=== PATIENT | male | born 1970 | race Caucasian/White ===

== ENCOUNTER 2021-09-15 18:15 | Emergency (ER) | payer BC, OTHER ==
[2021-09-15 18:54] VITALS: BP 164/96; PULSE 126
[2021-09-15 19:20] LABS: CHLORIDE,CL 92 mmol/L (98-107); SODIUM,NA 130 mmol/L (136-145)
[2021-09-15 19:21] LABS: ANION GAP 17.5 mmol/L (5-15)
[2021-09-15 19:38] LABS: BARBITURATE SCREEN,URINE NEGATIVE (NEGATIVE); BENZODIAZEPINES SCREEN,URINE NEGATIVE (NEGATIVE); BUPRENORPHINE SCREEN,URINE NEGATIVE (NEGATIVE); METHAMPHETAMINE SCREEN, URINE NEGATIVE (NEGATIVE); THC SCREEN,URINE 50 NG/ML NEGATIVE (NEGATIVE)
[2021-09-15] MEDS ORDERED: Sodium Chloride 0.9% 10 ML Syringe FLUSH PRN (19:40)
[2021-09-15] MEDS ORDERED: Sodium Chloride 0.9% 1,000 ML IV ONE (19:40)
[2021-09-15] MEDS ORDERED: Glucagon,Human Recombinant 1 MG Vial IM PRN ×2 (19:42→19:46)
[2021-09-15] MEDS ORDERED: Insulin Lispro 100 Units/ML 3 ML Vial SUBCUT ONE ×2 (19:42→19:46)
[2021-09-15] MEDS ORDERED: 50% Dextrose in Water 50 ML Syringe IVPUSH PRN ×2 (19:42→19:46)
[2021-09-15] MEDS ORDERED: Insulin Glarg,Human.Rec.Analog 100 Unit/ML SUBCUT ONE (19:47)
--- NOTE | 2021-09-15 22:14 | EDM.PDOC ---
ED HPI GENERAL MEDICAL PROBLEM - General Chief Complaint: Diabetic Complaint Stated Complaint: ED Time Seen by Provider: 09/15/21 18:49 Source of Information: Reports: Patient History Limitations: Reports: No Limitations - History of Present Illness INITIAL COMMENTS - FREE TEXT/NARRATIVE: Pt. presents to ER with complaints of elevated blood sugar. Pt. states that he has not taken his novolog or levamir for approx 2 weeks because he has been out of the medication. He states that he recently lost his job and is unable to afford it. Pt. states that he has been staying at the [facility] here in [place] for approx. 4 days because he sold his vehicle and is unable to get back to his home in [place], [place]. He states that he likely was also kicked out of his house, but his brother later agreed to come to [place] to pick him up. Pt. states that he was also on duloxetine but stopped taking this as well. Pt. states that he feels weak and fatigued. Denies any chest pain or shortness of breath. No nausea, vomiting, or diarrhea. Denies any recent trauma. Denies any suicidal or homicidal ideation. Pt. complains of polyuria and polydipsia. He states that he has not been checking his blood sugar, but has the supplied to do so at his home. Onset: Today Onset Date: 09/15/21 Location: Reports: Generalized - Related Data Allergies Allergy/AdvReac Type Severity Reaction Status Date / Time No Known Allergies Allergy Verified 05/11/20 19:58 Home Meds: Home Meds DULoxetine HCl [Cymbalta] 1 cap PO DAILY 10/13/16 [History] Insulin Aspart [NovoLOG] 16 units SUBCUT TIDAC 10/13/16 [History] Insulin Detemir [Levemir] 60 unit SQ DAILY 10/13/16 [History] sitaGLIPtin Phos/Metformin HCl [Janumet Xr 100-1,000 mg Tablet] 1 tab PO DAILY 10/13/16 [History] atorvaSTATin Calcium [Atorvastatin Calcium] 1 tab PO BEDTIME 03/18/18 [History] metFORMIN HCl [Metformin HCl ER] 1 tab PO DAILY 03/18/18 [History] Ibuprofen [Advil] 600 mg PO Q6H PRN 05/11/20 [History] Polymyxin B/Trimethoprim [PolyTrim Ophth Soln] 2 drop EARBOTH QID #1 bottle 05/11/20 [Rx] bisacodyL [Bisacodyl] 5 mg PO DAILY PRN 05/11/20 [History] Past Medical History HEENT History: Reports: Allergic Rhinitis, Impaired Vision, Other (See Below) Other HEENT History: Patient wears glasses. No history of diabetic retinopathy. Cardiovascular History: Reports: High Cholesterol, Hypertension, Other (See Below) Other Cardiovascular History: Mild left atrial enlargement and mild left ventricular hypertrophy by echocardiogram. Gastrointestinal History: Reports: Chronic Constipation Genitourinary History: Reports: Chronic Renal Insuffiency, Diabetic Nephropathy, Other (See Below) Other Genitourinary History: History of proteinuria. Musculoskeletal History: Reports: Back Pain, Chronic, Fracture, Other (See Below) Other Musculoskeletal History: L2 vertebral body compression fracture on 06/22/2013. Left wrist fracture at age 8. Left compound tibial fibular midshaft fractures in 1998 requiring surgery as below. Right gastrocnemius muscle tear on 04/27/2018. Psychiatric History: Reports: Addiction, Anxiety, Bipolar, Depression, Other (See Below) Other Psychiatric History: History of alcohol abuse in his 20s with outpatient treatment in 1999. Additional previous history of marijuana use in his early 20s. Endocrine/Metabolic History: Reports: Diabetes, Type II, IDDM, Obesity/BMI 30+ - Past Surgical History Male Surgical History: Reports: Circumcision, Other (See Below) Other Male Surgeries/Procedures: Circumcision as an . Musculoskeletal Surgical History: Reports: ORIF, Other (See Below) Other Musculoskeletal Surgeries/Procedures:: ORIF/jose placement of tibial- fibular fracture in 1998. - Past Imaging History Past Imaging History: Reports: Cardiac Echo (12/21/2010 with findings as above and ejection fraction of 60%.), CAT Scan (CT of the lumbar spine on 06/20/2013.), MRI (Right lower leg on 04/27/2018.), Stress Testing (Negative Cardiolite stress test on 12/27/2010 with ejection fraction of 62%.), Ultrasound (Renal ultrasound on 05/10/2018. Testicular ultrasound on 02/13/2012 and 02/25/2008.) Social & Family History - Family History Oncologic: Reports: Lung, Metastatic, Other (See Below) Other Oncologic Family History: Maternal grandfather with fatal metastatic lung cancer at age 72 with history of previous tobacco use. - Tobacco Use Tobacco Use Status *Q: Never Tobacco User - Caffeine Use Caffeine Use: Reports: Coffee, Soda - Recreational Drug Use Recreational Drug Use: No - Living Situation & Occupation Living situation: Reports: , with Family Occupation: Employed ([employer]) ED ROS GENERAL - Review of Systems Review Of Systems: See Below Constitutional: Reports: Fatigue HEENT: Reports: No Symptoms Respiratory: Reports: No Symptoms Cardiovascular: Reports: No Symptoms Endocrine: Reports: High Glucose, Polydypsia, Polyuria GI/Abdominal: Reports: No Symptoms : Reports: No Symptoms Musculoskeletal: Reports: No Symptoms Skin: Reports: No Symptoms Neurological: Reports: No Symptoms Psychiatric: Reports: No Symptoms Hematologic/Lymphatic: Reports: No Symptoms Immunologic: Reports: No Symptoms ED EXAM GENERAL NO PERIP PULSE - Physical Exam Exam: See Below Exam Limited By: No Limitations General Appearance: Alert, WD/WN, No Apparent Distress Eye Exam: Bilateral Eye: EOMI Throat/Mouth: Normal Inspection, Normal Lips, Normal Teeth, Normal Gums, Normal Oropharynx, Normal Voice, No Airway Compromise Head: Atraumatic, Normocephalic Neck: Normal Inspection, Supple, Non-Tender, Full Range of Motion Respiratory/Chest: No Respiratory Distress, Lungs Clear, Normal Breath Sounds, No Accessory Muscle Use, Chest Non-Tender Cardiovascular: Normal Peripheral Pulses, Regular Rate, Rhythm, No Edema, No Gallop, No JVD, No Murmur GI/Abdominal: Soft, Non-Tender, No Distention, No Mass (Male) Exam: Deferred Rectal (Males) Exam: Deferred Extremities: Normal Inspection, Normal Range of Motion, Non-Tender, No Pedal Edema, Normal Capillary Refill Neurological: Alert, Oriented, CN II-XII Intact, Normal Cognition, Normal Gait, Normal Reflexes, No Motor/Sensory Deficits Psychiatric: Normal Affect, Normal Mood Skin Exam: Warm, Dry, Intact, Normal Color, No Rash Course - Vital Signs Last Recorded V/S: Last Vital Signs Temp 36.8 C 09/15/21 18:49 Pulse 126 H 09/15/21 18:49 Resp 18 09/15/21 18:49 BP 164/96 H 09/15/21 18:49 Pulse Ox 97 09/15/21 18:49 - Orders/Labs/Meds Orders: Active Orders 24 hr Category Date Time Status Peripheral IV Insertion Adult [OM.PC] Routine Oth 09/15/21 19:40 Ordered Labs: Laboratory Tests 09/15/21 09/15/21 09/15/21 Range/Units 18:52 18:52 19:20 WBC 8.4 (4.0-10.0) x10^3/uL RBC 5.41 (4.5-6.0) x10^6/uL Hgb 16.5 (14.0-18.0) g/dL Hct 46.1 (40.0-52.0) % MCV 85.2 (78.0-93.0) fL MCH 30.5 (26.0-32.0) pg MCHC 35.8 (32.0-36.0) g/dL RDW Coeff of Dusty 11.8 (10.0-15.0) % Plt Count 313 (130-400) x10^3/uL Immature Gran % (Auto) 0.10 (0.00-0.43) % Neut % (Auto) 81.2 H (50.0-80.0) % Lymph % (Auto) 11.3 L (25.0-50.0) % [place] % (Auto) 6.8 (2.0-11.0) % Eos % (Auto) 0.2 (0.0-4.0) % Baso % (Auto) 0.4 (0.2-1.2) % Neut # (Auto) 6.8 (1.8-7.7) x10^3/uL Lymph # (Auto) 1.0 (1.0-4.8) x10^3/uL [place] # (Auto) 0.6 (0.0-0.8) x10^3/uL Eos # (Auto) 0.0 (0.0-0.5) x10^3/uL Baso # (Auto) 0.0 (0.0-0.2) x10^3/uL Immature Gran # (Auto) 0.01 (0.00-0.07) x10^3/uL Sodium 130 L (136-145) mmol/L Potassium 4.5 (3.5-5.1) mmol/L Chloride 92 L (98-107) mmol/L Carbon Dioxide 25 (21-32) mmol/L Anion Gap 17.5 H (5-15) mmol/L BUN 15 (7-18) mg/dL Creatinine 1.3 (0.70-1.30) mg/dL Est Cr Clr Drug Dosing 67.98 mL/min Estimated GFR (MDRD) 58 Glucose 496 H* (70-99) mg/dL POC Glucose (70-99) mg/dL Calcium 9.1 (8.5-10.1) mg/dL Corrected Calcium 9.3 (8.5-10.1) mg/dL Phosphorus 3.5 (2.6-4.7) mg/dL Magnesium 2.1 (1.8-2.4) mg/dL Total Bilirubin 0.8 (0.2-1.0) mg/dL AST 27 (15-37) U/L ALT 35 (16-63) U/L Alkaline Phosphatase 139 H (46-116) U/L Total Protein 7.6 (6.4-8.2) g/dL Albumin 3.8 (3.4-5.0) g/dL Globulin 3.8 Albumin/Globulin Ratio 1.00 Urine Color Light yellow (YELLOW) Urine Appearance Clear (CLEAR) Urine pH 5.5 (5.0-8.0) Ur Specific [place] 1.015 Urine Protein Trace H (NEGATIVE) mg/dL Urine Glucose (UA) 500 H (NEGATIVE) mg/dL Urine Ketones 80 H (NEGATIVE) mg/dL Urine Occult Blood Negative (NEGATIVE) Urine Nitrite Negative (NEGATIVE) Urine Bilirubin Negative (NEGATIVE) Urine Urobilinogen 0.2 (0.2) EU/dL Ur Leukocyte Esterase Negative (NEGATIVE) Urine RBC Not seen (NOT SEEN) /HPF Urine WBC Not seen (NOT SEEN) /HPF Ur Squamous Epith Cells Rare (NOT SEEN) /HPF Urine Bacteria Not seen (NOT SEEN) /HPF Urine Mucus Not seen (NOT SEEN) /LPF Urine Opiates Screen (NEGATIVE) Ur Buprenorphine Scrn (NEGATIVE) Ur Oxycodone Screen (NEGATIVE) Urine Methadone Screen (NEGATIVE) Ur Barbiturates Screen (NEGATIVE) Ur Phencyclidine Scrn (NEGATIVE) Ur Amphetamine Screen (NEGATIVE) U Methamphetamines Scrn (NEGATIVE) Urine MDMA Screen (NEGATIVE) U Benzodiazepines Scrn (NEGATIVE) U Cocaine Metab Screen (NEGATIVE) U Marijuana (THC) Screen (NEGATIVE) Ethyl Alcohol < 3 (0-3) mg/dL 12/18/21 12/18/21 Range/Units 19:20 21:20 WBC (4.0-10.0) x10^3/uL RBC (4.5-6.0) x10^6/uL Hgb (14.0-18.0) g/dL Hct (40.0-52.0) % MCV (78.0-93.0) fL MCH (26.0-32.0) pg MCHC (32.0-36.0) g/dL RDW Coeff of Dusty (10.0-15.0) % Plt Count (130-400) x10^3/uL Immature Gran % (Auto) (0.00-0.43) % Neut % (Auto) (50.0-80.0) % Lymph % (Auto) (25.0-50.0) % [place] % (Auto) (2.0-11.0) % Eos % (Auto) (0.0-4.0) % Baso % (Auto) (0.2-1.2) % Neut # (Auto) (1.8-7.7) x10^3/uL Lymph # (Auto) (1.0-4.8) x10^3/uL [place] # (Auto) (0.0-0.8) x10^3/uL Eos # (Auto) (0.0-0.5) x10^3/uL Baso # (Auto) (0.0-0.2) x10^3/uL Immature Gran # (Auto) (0.00-0.07) x10^3/uL Sodium (136-145) mmol/L Potassium (3.5-5.1) mmol/L Chloride (98-107) mmol/L Carbon Dioxide (21-32) mmol/L Anion Gap (5-15) mmol/L BUN (7-18) mg/dL Creatinine (0.70-1.30) mg/dL Est Cr Clr Drug Dosing mL/min Estimated GFR (MDRD) Glucose (70-99) mg/dL POC Glucose 392 H (70-99) mg/dL Calcium (8.5-10.1) mg/dL Corrected Calcium (8.5-10.1) mg/dL Phosphorus (2.6-4.7) mg/dL Magnesium (1.8-2.4) mg/dL Total Bilirubin (0.2-1.0) mg/dL AST (15-37) U/L ALT (16-63) U/L Alkaline Phosphatase (46-116) U/L Total Protein (6.4-8.2) g/dL Albumin (3.4-5.0) g/dL Globulin Albumin/Globulin Ratio Urine Color (YELLOW) Urine Appearance (CLEAR) Urine pH (5.0-8.0) Ur Specific [place] Urine Protein (NEGATIVE) mg/dL Urine Glucose (UA) (NEGATIVE) mg/dL Urine Ketones (NEGATIVE) mg/dL Urine Occult Blood (NEGATIVE) Urine Nitrite (NEGATIVE) Urine Bilirubin (NEGATIVE) Urine Urobilinogen (0.2) EU/dL Ur Leukocyte Esterase (NEGATIVE) Urine RBC (NOT SEEN) /HPF Urine WBC (NOT SEEN) /HPF Ur Squamous Epith Cells (NOT SEEN) /HPF Urine Bacteria (NOT SEEN) /HPF Urine Mucus (NOT SEEN) /LPF Urine Opiates Screen Negative (NEGATIVE) Ur Buprenorphine Scrn Negative (NEGATIVE) Ur Oxycodone Screen Negative (NEGATIVE) Urine Methadone Screen Negative (NEGATIVE) Ur Barbiturates Screen Negative (NEGATIVE) Ur Phencyclidine Scrn Negative (NEGATIVE) Ur Amphetamine Screen Negative (NEGATIVE) U Methamphetamines Scrn Negative (NEGATIVE) Urine MDMA Screen Negative (NEGATIVE) U Benzodiazepines Scrn Negative (NEGATIVE) U Cocaine Metab Screen Negative (NEGATIVE) U Marijuana (THC) Screen Negative (NEGATIVE) Ethyl Alcohol (0-3) mg/dL Meds: Medications Discontinued Medications Generic Name Dose Route Start Last Admin Trade Name Freq PRN Reason Stop Dose Admin Dextrose/Water 50 ml 09/15/21 19:42 50% Dextrose In Water 50 Ml Syringe IVPUSH ASDIRECTED PRN Hypoglycemia Dextrose/Water 50 ml 09/15/21 19:46 50% Dextrose In Water 50 Ml Syringe IVPUSH ASDIRECTED PRN Hypoglycemia Glucagon 1 mg 09/15/21 19:42 Glucagon,Human Recombinant 1 Mg Vial IM ASDIRECTED PRN Hypoglycemia Glucagon 1 mg 09/15/21 19:46 Glucagon,Human Recombinant 1 Mg Vial IM ASDIRECTED PRN Hypoglycemia Sodium Chloride 1,000 mls @ 999 mls/hr 09/15/21 19:40 09/15/21 20:16 Normal Saline IV 09/15/21 20:40 999 mls/hr ONETIME ONE Administration Insulin Glargine 45 unit 09/15/21 19:47 09/15/21 20:30 Insulin Glarg,Human.Rec.Analog 100 Unit/Ml SUBCUT 09/15/21 19:48 45 units ONETIME ONE Administration Insulin Human Lispro 20 unit 09/15/21 19:42 Insulin Lispro 100 Units/Ml 3 Ml Vial SUBCUT 09/15/21 19:43 ONETIME ONE Insulin Human Lispro 20 unit 09/15/21 19:46 09/15/21 20:28 Insulin Lispro 100 Units/Ml 3 Ml Vial SUBCUT 09/15/21 19:47 20 units ONETIME ONE Administration Sodium Chloride 10 ml 09/15/21 19:40 Sodium Chloride 0.9% 10 Ml Syringe FLUSH ASDIRECTED PRN Keep Vein Open - Re-Assessments/Exams Free Text/Narrative Re-Assessment/Exam: Blood glucose from lab draw 496mg/dl. Pt. was given humalog 20 u SQ and lantus 45 u SQ. He was also given a liter of NS IV. Blood glucose was recheck and was down to 392mg/dl at time of discharge. Pt. requesting to be released from ER as his brother will be bringing him back home. Departure - Departure Time of Disposition: 21:00 Disposition: Home, Self-Care 01 Clinical Impression: Hyperglycemia, Hyponatremia - Discharge Information Instructions: Type 2 Diabetes Mellitus, Diagnosis, Adult, Hyperglycemia, [id number] Referrals: PCP,Not In Area [Primary Care Provider] - Forms: ED Department Discharge Additional Instructions: Humalog 20 units three times daily Lantus 45 units once daily Check your blood sugar when you get home tonight. You will need to check this several times per day for the next few days. You can slowly start increasing your lantus over the next several days. You will need to take some extra humalog as well to aim at getting your blood sugar less than 200. Follow-up with PCP next week. Sepsis Event Note (ED) - Evaluation Sepsis Screening Result: No Definite Risk - Focused Exam Vital Signs: Vital Signs Temp Pulse Resp BP Pulse Ox 09/15/21 18:49 36.8 C 126 H 18 164/96 H 97 - My Orders Last 24 Hours: My Active Orders 09/15/21 19:40 Peripheral IV Insertion Adult [OM.PC] Routine - Assessment/Plan Last 24 Hours: My Active Orders 09/15/21 19:40 Peripheral IV Insertion Adult [OM.PC] Routine Plan: Humalog 20 units three times daily Lantus 45 units once daily Check your blood sugar when you get home tonight. You will need to check this several times per day for the next few days. You can slowly start increasing your lantus over the next several days. You will need to take some extra humalog as well to aim at getting your blood sugar less than 200. Follow-up with PCP next week.
== END 2021-09-15 21:30 | disposition home or self-care (01) ==
LOC: VM.ED 18:15
DX: E11.65 Type 2 diabetes mellitus with hyperglycemia (principal); E87.1 Hypo-osmolality and hyponatremia; E78.00 Pure hypercholesterolemia, unspecified; I10 Essential (primary) hypertension; E66.9 Obesity, unspecified; Z79.4 Long term (current) use of insulin; Z79.84 Long term (current) use of oral hypoglycemic drugs; Z79.899 Other long term (current) drug therapy; Z68.28 Body mass index [BMI] 28.0-28.9, adult
CPT/HCPCS: 36415; 80053; 80305-QW; 80307; 81001; 82947; 83735; 84100; 85025; 99285; J1815-GY; J7030

== ENCOUNTER 2021-12-16 06:13 | Emergency (ER) | payer OTHER, BC ==
[2021-12-16 07:30] VITALS: BP 163/92; PULSE 91
== END 2021-12-16 07:47 | disposition home or self-care (01) ==
LOC: VM.ED 06:13
DX: M54.2 Cervicalgia (principal); M54.9 Dorsalgia, unspecified; E78.00 Pure hypercholesterolemia, unspecified; I12.9 Hypertensive chronic kidney disease with stage 1 through stage 4 chronic kidney disease, or unspecified chronic kidney disease; E11.21 Type 2 diabetes mellitus with diabetic nephropathy; E11.22 Type 2 diabetes mellitus with diabetic chronic kidney disease; N18.9 Chronic kidney disease, unspecified; Z79.4 Long term (current) use of insulin; Z79.899 Other long term (current) drug therapy
CPT/HCPCS: 70450; 72125; 99284; 99284-25